=== PATIENT | male | born 2000 | race African-American/Black ===

== ENCOUNTER 2021-03-19 06:56 | Day surgery (SDC) | payer OTHER, SELFPAY ==
[2021-03-19] MEDS ORDERED: NA CHLORIDE 0.9% 1,000 ML ONE ×2 (08:09→09:02)
[2021-03-19] MEDS ORDERED: CEFTRIAXONE/SWI 1gm 1 GM/10 ML SYR ONE (08:09)
[2021-03-19] MEDS ORDERED: ONDANSETRON 4 MG/2 ML VIAL ONE ×2 (08:15→11:53)
[2021-03-19] MEDS ORDERED: MORPHINE 4 MG/ML SYR ONE (08:15)
--- NOTE | 2021-03-19 10:32 | EDPHYS ---
Physician Documentation [facility] Name: Pankaj Coronado Age: 20 yrs Sex: Male : 2000 Arrival Date: 03/19/2021 Time: 09:15 Bed 13 Private MD: ED Physician Eliezer Monreal Vital Signs: 03/19 08:30 BP 129 / 63; Pulse 71; Resp 16; Temp 97.5(O); Pulse Ox 96% on R/A; mh5 09:27 BP 124 / 71; Pulse 63; Resp 16; Temp 97.6(O); Pulse Ox 96% on R/A; mh5 10:00 BP 140 / 89; Pulse 70; Resp 18; Pulse Ox 100% on R/A; tr6 MDM: 10:29 Patient medically screened. ma2 Administered Medications: No medications were administered Disposition: 03/19/21 10:31 Hospitalization ordered by Richa Emerson for Observation. Preliminary diagnosis is Acute pharyngitis - WITH RIGHT CARLITOS-TONSILLAR ABSCESS. - Bed requested for Telemetry/MedSurg (Inpatient). - Status is Observation. ss - Condition is Stable. - Problem is new. - Symptoms are unchanged. Signatures: Judy Marie RN RN ss Alzahri, Mohammad, MD MD ma2 Corrections: (The following items were deleted from the chart) 10:49 10:31 Hospitalization Ordered by Richa Emerson MD for Observation. Preliminary diagnosis is ss Acute pharyngitis - WITH RIGHT CARLITOS-TONSILLAR ABSCESS. Bed requested for Telemetry/MedSurg (Inpatient). Status is Observation. Condition is Stable. Problem is new. Symptoms are unchanged. ma2
--- NOTE | 2021-03-19 10:32 | ER ---
Nurse's Notes [facility] Name: Pankaj Coronado Age: 20 yrs Sex: Male : 2000 Arrival Date: 03/19/2021 Time: 09:15 Bed 13 Private MD: Diagnosis: Acute pharyngitis-WITH RIGHT CARLITOS-TONSILLAR ABSCESS Assessment: 03/19 10:00 General: Appears uncomfortable, slender, well groomed, Behavior is calm, cooperative, tr6 appropriate for age. Pain: Complains of pain in throat. Neuro: No deficits noted. Cardiovascular: No deficits noted. Respiratory: Airway is compromised Respiratory effort is even, unlabored, relaxed, Respiratory pattern is regular, pts throat swollen and pt reports he had some difficulty breathing last night which prompted ED visit Breath sounds are clear GI: No deficits noted. : No deficits noted. EENT: Throat is reddened has enlarged tonsils. Derm: No deficits noted. Derm: No deficits noted. 10:32 Reassessment: pt transferred to OR by UNIT RECEPTIONIST via wheelchair. tr6 Vital Signs: 08:30 BP 129 / 63; Pulse 71; Resp 16; Temp 97.5(O); Pulse Ox 96% on R/A; mh5 09:27 BP 124 / 71; Pulse 63; Resp 16; Temp 97.6(O); Pulse Ox 96% on R/A; mh5 10:00 BP 140 / 89; Pulse 70; Resp 18; Pulse Ox 100% on R/A; tr6 ED Course: 09:15 Patient arrived in ED. ss 09:21 Eliezer Monreal MD is Attending Physician. eb 09:28 Patient has correct armband on for positive identification. Placed in gown. Bed in low mh5 position. Call light in reach. Side rails up X2. Warm blanket given. Pulse ox on. NIBP on. 09:40 Fide Patten RN is Primary Nurse. tr6 10:31 Richa Emerson MD is Hospitalizing Provider. ma2 10:34 No provider procedures requiring assistance completed. Inserted saline lock: 18 gauge tr6 in right antecubital area, using aseptic technique. Administered Medications: No medications were administered Outcome: 10:31 Decision to Hospitalize by Provider. ma2 10:49 Admitted to OR accompanied by nurse. ss 10:49 Condition: stable 10:49 Instructed on the need for admit. 10:49 Patient left the ED. Signatures: Judy Marie, RN RN Pricila Hayes [facility] Eliezer Monreal MD MD sc2 Jo Lazar Tiffany, RN RN tr6
[2021-03-19 10:57] VITALS: O2SAT 100
[2021-03-19] MEDS ORDERED: Ringers Lactate 1,000 ML IV ONE (10:57)
--- NOTE | 2021-03-19 11:33 | CON ---
Date of Consultation: 03/19/2021 Referring Physician: Dr. Monreal -- Emergency room physician. Chief Complaint: Severe sore throat. History Of Present Illness: The patient a pleasant 20-year-old young male who presented to the emerg ency room acutely after experiencing approximately one and half week history of sore throat, which co ntinued to worsen over that time to the point where now he is unable to eat or drink. Today he repor ts severe sore throat and odynophagia and even hurts for him to talk. He denies fever, shortness of breath, chest pain or other ENT complaints today. Past Medical History: None. Past Surgical History: None. Medications: The patient is on no medications at this time. Allergies: NO KNOWN DRUG ALLERGIES. Social History: The patient occasionally smokes and drinks alcohol socially. No illicit drugs. Review of Systems: Ears: Negative for otalgia, otorrhea, or hearing loss. Nose: Negative for rhinorrhea, nasal congestion. Oral cavity: Positive for severe odynophagia, sore throat, throat swelling. Neck: Positive for pain radiating from the throat and extending up to the right cheek. Physical Examination: Vital Signs: Stable. O2 saturation 100% on room air. Blood pressure is 105/68 and heart rate is 78 , respirations are 16 to 18. Eyes: PERRLA/EOMI. Ears: Patent right ear canal with tympanic membrane intact. No effusion; left ear cerumen impaction. Tympanic membrane nonvisualized secondary to cerumen. Nose: Moist mucosa. Midline septum. Turbinates not enlarged. Oral cavity: The patient is only able to open approximately 1.5 cm, which is basically the width of a tongue depressor; however, I am able to visualize with the headlight posteriorly and I could see th at he has a rather large right peritonsillar abscess, which is extending and crossing midline. The p atient has a patent airway. There is diffuse erythema and edema associated with the abscess. Neck: Supple with palpable lymph nodes through levels 1 through 3 of the right side of the neck. Th yroids not enlarged. Diagnoses: Acute right peritonsillar abscess -- currently stable. Plan: Due to his inability to open his mouth past 1.5 cm, I feel like the safest procedure would be to relax him in the operating room under anesthesia and drain the peritonsillar abscess. Pain is managed with IV morphine and he received at least 1 L of fluids. We will bolus another liter before surgery and he received IV antibiotics already and we will continue or switch to oral antibio tics post surgically. KD/MODL Voice ID: [id number] Report ID: [id number]
[2021-03-19] MEDS ORDERED: FENTANYL CITR 100 MCG/2 ML ONE (11:51)
[2021-03-19] MEDS ORDERED: LIDOCAINE 2% MPF 5 ML VIAL ONE (11:51)
[2021-03-19] MEDS ORDERED: propofoL 200 MG/20 ML VIAL IV ONE (11:51)
[2021-03-19] MEDS ORDERED: ROCURONIUM 50 MG/5 ML VIAL IV ONE (11:51)
[2021-03-19] MEDS ORDERED: dexAMETHasone 10 MG/ML VIAL ONE (11:51)
[2021-03-19] MEDS ORDERED: MIDAZOLAM HCL 2 MG/2 ML INJ ONE (11:51)
[2021-03-19] MEDS ORDERED: SUCCINYLCHOLINE 20 MG/ML (10 ML) IV ONE (12:00)
[2021-03-19] MEDS ORDERED: GLYCOPYRROLATE 0.2 MG/ML SYR ONE (12:25)
[2021-03-19 13:58] VITALS: TEMP 97.7
[2021-03-19] MEDS ORDERED: CODEINE 12mg/APAP 120mg PER 5 ML UCUP PO ONE ×2 (14:53→15:00)
[2021-03-19 15:24] VITALS: BP 157/82
--- NOTE | 2021-03-20 00:09 | OP ---
Date of Procedure: 03/19/2021 Surgeon: FRANCISCO GOLDMAN Primary Care Physician: Unknown. Preoperative Diagnoses: 1.Right peritonsillar abscess. 2.Severe uvulitis. Postoperative Diagnoses: 1.Right peritonsillar abscess. 2.Severe uvulitis. Procedures: 1.Incision and drainage of right peritonsillar abscess. 2.Uvulectomy. Anesthesia: General endotracheal anesthesia was administered. Approximately 4 mL of 0.25% Marcaine was injected at the end of the case. Estimated Blood Loss: Scant, less than 2 mL. Specimens: Gram stain and culture swabs were obtained and handed off the field, and sent to [facility] for further evaluation. Findings: Significant obstructive uvulitis and uvula was obstructing the airway -- grade 4 swelling; moderate right peritonsillar abscess -- approximately 3 to 5 mL of mucopurulent secretions were expr essed from the abscess cavity; right friable tonsil with exudate. Complications: None. Disposition: Stable. The patient tolerated the procedure well. Indications For Procedure: The patient is a pleasant 20-year-old male who presented to the emergency room acutely with severe sore throat and odynophagia secondary to right peritonsillar abscess and uv ulitis. He has not seen a physician for treatment and has not been on any medication. Thus, these w ere the indictions to bring the patient to the operative suite for the above mentioned procedures. Antonia campbell had planned to drain this in the emergency room, but secondary to trismus and inability to open the mouth wider than 1.5 cm, it was contraindicated to doing it at bedside. Thus, we prepared him for juliane carr in the operating room. He understood. All questions were answered. Risks versus benefits a nd complications were explained in detail and consent form was signed, which was placed on the chart. Description Of Procedure: The [facility], placed on the operating table supine, sedated and intubated in normal fashion. Table was rotated to 90 degrees and a head rest was placed. A McIvor retractor w as introduced into the right oral commissure and directed along the endotracheal tube and suspended f rom the Felix stand. Initially, the endotracheal tube was positioned at the left oral commissure; how ever, we repositioned at midline, so that I could gain better access to the uvula. Once suspended fr om the Felix stand, the uvelectomy was performed with needle-point electrocautery on the 20th setting. The uvula tip was handed off the field and to Pathology for evaluation. The uvula was bifid, but I did not detect any submucous palate or cleft, and no evidence of pulsation to suggest aberrant vesse ls. The uvula wound defect was then cauterized with suction Bovie cautery on the 20th setting and en I repaired the defect utilizing 3-0 Vicryl suture in a continuous running fashion. Next, attentio n was placed to the right peritonsillar abscess, in which an incision was made between the tonsil and the soft palate utilizing needle-point electrocautery until the abscess cavity was located. Immedia tely yellow exudate was coming from the abscess cavity and I was able to obtain gram stain and cultur e swabs, and this was handed off the field. I then expressed approximately 3 to 5 mL of exudate and then irrigated the oral cavity and suctioned out the fluid with Yankauer suction. A flexible orogast julio c tube was introduced into the esophagus and stomach, and all fluid contents were removed. All are as were checked and hemostasis was achieved with suction Bovie cautery. Once hemostasis was achieved , the patient was then de-suspended from the Felix stand and McIvor retractor was removed. The patien t's jaw was checked and found to be in proper alignment. The head turban was removed and the patient tolerated the procedure well. He will be discharged home on Tylenol with Codeine as well as amoxicillin for good, and we will have a followup in the outpatient s etting in approximately 1 to 2 weeks. ANABELL/MARTINEZ Voice ID: [id number] Report ID: [id number]
== END 2021-03-19 15:45 | disposition home or self-care (01) ==
LOC: ER 06:56 → DS 15:40
PROVIDERS: ATTEND Otolaryngology Facial Plastic Surgery
PROC: 0CTNXZZ Resection of Uvula, External Approach (ICD-10-PCS; 2021-03-19)
PROC: 0C9PXZX Drainage of Tonsils, External Approach, Diagnostic (ICD-10-PCS; principal; 2021-03-19 09:45)
DX: J36 Peritonsillar abscess (principal); K12.2 Cellulitis and abscess of mouth
CPT/HCPCS: 87070; 87077; 87186; 87205; 88305; 99285; J0330; J0696; J1100; J2250; J2405; J2704; J3010; J7030; J7120